=== PATIENT | female | born 1950 | race Caucasian/White ===

== ENCOUNTER 2016-07-19 22:16 | Emergency (ER) | payer MEDICARE, BC ==
[~2016-07-19] VITALS: Ht 167.6 cm; Wt 45.0 kg
[~2016-07-19 22:16] MED LIST: ECOT81TA2 PO; HYDRO25 PO; OXYB5TAB PO; [UNRECOGNIZED DRUG - CODE] SC
[2016-07-19 22:31] VITALS: BP 116/67; PULSE 86; RESP 16; TEMP 97.7; O2SAT 98
[2016-07-19] MEDS ORDERED: ASPI81TA81 (22:37)
[2016-07-19] MEDS ORDERED: SODIUM CHLOR 0.9% 1000 ML INJ 1,000 ML IV ONE (22:40)
[2016-07-19] MEDS ORDERED: [UNRECOGNIZED DRUG - CODE] SQ (22:42)
[2016-07-19 22:43] VITALS: RESP 18; O2SAT 98
[2016-07-19] MEDS ORDERED: SODIUM CHLORIDE 0.9% FLUSH 10 ML FLUSH IVF PRN (22:45)
[2016-07-19 23:01] VITALS: BP_SYST 100; BP_SYST 90; BP_SYST 97; BP_DIAS 54; BP_DIAS 62; BP_DIAS 64
--- NOTE | 2016-07-19 23:05 | PD ---
HPI Chief Complaint: Syncope/Near-Syncope Time Seen by Provider: 22:36 Travel History International Travel<30 days: No Contact w/Intl Traveler<30days: No Traveled to known affect area: No History of Present Illness HPI The patient is a 65-year-old female who presents emergency department via EMS after syncopal episode. The patient had a few glasses of white wine earlier tonight, was in the bathroom, sitting down, straining when she apparently passed out. The patient states she awakened on the ground, does not recall the events after she was straining. She does complain of mild headache and some left-sided neck pain. The patient does have a previous history of syncope after taking medications for her multiple sclerosis. The patient denies any acute focal deficits, chest pain, shortness breath, nausea, vomiting , or abdominal pain. She denies any known history of arrhythmias. The patient' s primary physician is Dr. Eng and her neurologist is Dr. Cohen. Symptoms are moderate, exacerbated after using the bathroom and straining, and there are no current alleviating factors. PFSH Past Medical History Anxiety: Yes Depression: Yes Cancer: No Cardiovascular Problems: No Diminished Hearing: No Endocrine: No Fibromyalgia: Yes Genitourinary: Yes (Frequant Urination) Immune Disorder: No Musculoskeletal: No Neurologic: Yes (MS) Psychiatric: Yes Reproductive: No Respiratory: No Migraines: Yes : 1 Para: 1 Past Surgical History Abdominal Surgery: No Cardiac Surgery: No Ear Surgery: No Endocrine Surgery: No Eye Surgery: No Genitourinary Surgery: No Gynecologic Surgery: No Oral Surgery: Yes (Implants) Thoracic Surgery: No Other Surgery: Yes Social History Alcohol Use: Yes (EVERYDAY ) Tobacco Use: No Substance Use: No Allergies-Medications (Allergen,Severity, Reaction): Coded Allergies: No Known Allergies (Unverified , 08/03/15) Reported Meds & Prescriptions Reported Meds & Active Scripts Active Reported Folic Acid 400 Mcg Tab 400 Mcg PO DAILY Divalproex DR (Divalproex Sodium) 250 Mg Tabdr 250 Mg PO BID Duloxetine DR (Duloxetine HCl) 60 Mg Capdr 60 Mg PO DAILY Amantadine (Amantadine HCl) 100 Mg Tab 100 Mg PO BID Ditropan (Oxybutynin Chloride) 5 Mg Tab 5 Mg PO Q12HR Topiramate ER (Topiramate) 25 Mg Cap 25 Mg PO BID Sulfasalazine 500 Mg Tab 500 Mg PO Q8H Pilocarpine 7.5 Mg Tab 7.5 Mg PO Q8HR Rebif Rebidose Pen Inj (Interferon Beta 1a) 22 Mcg/0.5 Ml Pen 22 Mcg SQ Q3D Aspir-81 (Aspirin) 81 Mg Tabdr Review of Systems Except as stated in HPI: all other systems reviewed are Neg General / Constitutional: No: Fever Eyes: No: Blurred Vision HENT: Positive: Headaches, Neck Pain, No: Lightheadedness Cardiovascular: Positive: Syncope, No: Chest Pain or Discomfort, Palpitations , Irregular Rhythm, Tachycardia, Diaphoresis, Dyspnea on exertion Respiratory: No: Shortness of Breath Gastrointestinal: No: Nausea, Vomiting Neurologic: Positive: Syncope, Other (possible LOC, history of MS), No: Weakness, Dizziness, Change in Mentation Physical Exam Narrative GENERAL: Awake, alert, pleasant 65-year-old female who appears her stated age is in no acute respiratory distress. SKIN: Focused skin assessment warm/dry. HEAD: Atraumatic. Normocephalic. EYES: Pupils equal and round. Pupils are 3 mm bilateral and reactive. Patient is able to see fingers at a distance of 2 feet without difficulty. EOMs are intact. ENT: No nasal bleeding or discharge. Mucous membranes pink and moist. NECK: Trachea midline. No JVD. CARDIOVASCULAR: Regular rate and rhythm. No murmur appreciated. RESPIRATORY: No accessory muscle use. Clear to auscultation. Breath sounds equal bilaterally. GASTROINTESTINAL: Abdomen soft, non-tender, nondistended. No rebound tenderness. MUSCULOSKELETAL: No obvious deformities. No clubbing. No cyanosis. No edema. NEUROLOGICAL: Awake and alert. No obvious cranial nerve deficits. Motor grossly within normal limits. Normal speech. Nonfocal. Oriented 4. Follows commands without difficulty. PSYCHIATRIC: Appropriate mood and affect; insight and judgment normal. Data Data Last Documented VS Vital Signs Date Time Temp Pulse Resp B/P Pulse Ox O2 Delivery O2 Flow Rate FiO2 07/19/16 23:01 85 100/64 87 97/62 88 90/54 07/19/16 22:43 18 98 07/19/16 22:31 97.7 Orders Electrocardiogram (07/19/16 22:40) Complete Blood Count With Diff (07/19/16 22:40) Comprehensive Metabolic Panel (07/19/16 22:40) Magnesium (Mg) (07/19/16 22:40) Ct Brain W/O Iv Contrast(Rout) (07/19/16 22:40) Ct Cerv Spine W/O Contrast (07/19/16 22:40) Ecg Monitoring (07/19/16 22:40) Iv Access Insert/Monitor (07/19/16 22:40) Oximetry (07/19/16 22:40) Sodium Chloride 0.9% Flush (Ns Flush) (07/19/16 22:45) Sodium Chlor 0.9% 1000 Ml Inj (Ns 1000 M (07/19/16 22:40) Orthostatic Vital Signs (07/19/16 22:40) Alcohol (Ethanol) (07/19/16 22:40) Tetanus/Diphtheria Tox Adult (Tetanus/Di (07/19/16 23:15) Sodium Chlor 0.9% 1000 Ml Inj (Ns 1000 M (07/20/16 00:30) Labs Laboratory Tests Test 07/19/16 22:45 White Blood Count 4.5 TH/MM3 Red Blood Count 3.56 MIL/MM3 Hemoglobin 11.0 GM/DL Hematocrit 34.4 % Mean Corpuscular Volume 96.7 FL Mean Corpuscular Hemoglobin 30.9 PG Mean Corpuscular Hemoglobin 32.0 % Concent Red Cell Distribution Width 14.3 % Platelet Count 303 TH/MM3 Mean Platelet Volume 7.8 FL Neutrophils (%) (Auto) 45.2 % Lymphocytes (%) (Auto) 41.6 % Monocytes (%) (Auto) 10.2 % Eosinophils (%) (Auto) 2.3 % Basophils (%) (Auto) 0.7 % Neutrophils # (Auto) 2.0 TH/MM3 Lymphocytes # (Auto) 1.9 TH/MM3 Monocytes # (Auto) 0.5 TH/MM3 Eosinophils # (Auto) 0.1 TH/MM3 Basophils # (Auto) 0.0 TH/MM3 CBC Comment DIFF FINAL Differential Comment Sodium Level 143 MEQ/L Potassium Level 3.8 MEQ/L Chloride Level 104 MEQ/L Carbon Dioxide Level 29.7 MEQ/L Anion Gap 9 MEQ/L Blood Urea Nitrogen 14 MG/DL Creatinine 0.77 MG/DL Estimat Glomerular Filtration 75 ML/MIN Rate Random Glucose 90 MG/DL Calcium Level 8.1 MG/DL Magnesium Level 2.1 MG/DL Total Bilirubin 0.2 MG/DL Aspartate Amino Transf 27 U/L (AST/SGOT) Alanine Aminotransferase 45 U/L (ALT/SGPT) Alkaline Phosphatase 69 U/L Total Protein 5.9 GM/DL Albumin 3.3 GM/DL Ethyl Alcohol Level 4 MG/DL [facility] Medical Decision Making Medical Screen Exam Complete: Yes Emergency Medical Condition: Yes Medical Record Reviewed: Yes Interpretation(s) EKG reveals normal sinus rhythm with a rate of 82. No ischemic changes or ectopy noted. No evidence of WPW or Brugada syndrome. Laboratory Tests Test 07/19/16 22:45 White Blood Count 4.5 TH/MM3 Red Blood Count 3.56 MIL/MM3 Hemoglobin 11.0 GM/DL Hematocrit 34.4 % Mean Corpuscular Volume 96.7 FL Mean Corpuscular Hemoglobin 30.9 PG Mean Corpuscular Hemoglobin 32.0 % Concent Red Cell Distribution Width 14.3 % Platelet Count 303 TH/MM3 Mean Platelet Volume 7.8 FL Neutrophils (%) (Auto) 45.2 % Lymphocytes (%) (Auto) 41.6 % Monocytes (%) (Auto) 10.2 % Eosinophils (%) (Auto) 2.3 % Basophils (%) (Auto) 0.7 % Neutrophils # (Auto) 2.0 TH/MM3 Lymphocytes # (Auto) 1.9 TH/MM3 Monocytes # (Auto) 0.5 TH/MM3 Eosinophils # (Auto) 0.1 TH/MM3 Basophils # (Auto) 0.0 TH/MM3 CBC Comment DIFF FINAL Differential Comment Sodium Level 143 MEQ/L Potassium Level 3.8 MEQ/L Chloride Level 104 MEQ/L Carbon Dioxide Level 29.7 MEQ/L Anion Gap 9 MEQ/L Blood Urea Nitrogen 14 MG/DL Creatinine 0.77 MG/DL Estimat Glomerular Filtration 75 ML/MIN Rate Random Glucose 90 MG/DL Calcium Level 8.1 MG/DL Magnesium Level 2.1 MG/DL Total Bilirubin 0.2 MG/DL Aspartate Amino Transf 27 U/L (AST/SGOT) Alanine Aminotransferase 45 U/L (ALT/SGPT) Alkaline Phosphatase 69 U/L Total Protein 5.9 GM/DL Albumin 3.3 GM/DL Ethyl Alcohol Level 4 MG/DL CT of the head reveals no acute intracranial findings CT of the cervical spine reveals degenerative changes. No evidence of acute bony injury the cervical spine. Differential Diagnosis Differential diagnosis includes arrhythmia, vasovagal syncope, micturition syncope, aortic stenosis, intracranial hemorrhage, cervical fracture, electrolyte abnormality. Narrative Course IV was established, labs are drawn and sent, and the patient was placed on cardiac telemetry monitoring and continuous pulse oximetry monitoring. EKG was ordered and interpreted. Orthostatic vital signs were obtained and the patient was administered IV fluids. CT of the brain and cervical spine were obtained. The patient's orthostatic vital signs are unremarkable. CT the brain is negative, CT cervical spine reveals degenerative changes, no fracture. Laboratory evaluation is unremarkable. Patient does have a history of blood pressure that is on the lower end, therefore, was administered a second liter of IV fluids. The laceration was stable, she is advised to return in one week for removal. The patient was asymptomatic and will be discharged home. Procedures Procedure Narrative LACERATION LOCATION: Occipital scalp LENGTH: 4 cm NUMBER OF STITCHES/ANTONIO: 8 REPAIR: The area of the laceration was prepped with Betadine and sterilely draped. The laceration was infiltrated with 1% lidocaine with epinephrine. The wound was copiously irrigated and explored without evidence of foreign body , tendon injury or neurovascular injury. The wound was closed using antonio. This was a single layer repair. A sterile dressing was applied. The patient was advised to keep the dressing clean and dry. Patient tolerated the procedure well. Diagnosis Primary Impression: Syncope Qualified Code: R55 - Syncope, unspecified syncope type Additional Impression: Laceration of scalp Qualified Code: S01.01XA - Laceration of scalp, initial encounter Additional Instructions: Staple removal in 7 days. Monitor for signs of infection. Return if symptoms worsen or progress. Drink plenty fluids to stay hydrated. Med/Other Pt SpecificInfo: No Change to Meds Disposition: 01 DISCHARGE HOME Condition: Stable Patrick Armstrong MD July 19, 2016 23:05
[2016-07-19 23:06] LABS: BASOPHIL % 0.7 % (0.0-2.0); EOSINOPHIL # 0.1 TH/MM3 (0-0.4); EOSINOPHIL % 2.3 % (0.0-4.0); HEMATOCRIT 34.4 % (35.0-46.0); HEMO FLAGS DIFF FINAL; LYMPH % 41.6 % (9.0-44.0); LYMPHOCYTE # 1.9 TH/MM3 (1.0-4.8); MEAN CELL VOLUME 96.7 FL (80.0-100.0); MEAN CORPUSCULAR HEMOGLOBIN 30.9 PG (27.0-34.0); MONO % 10.2 % (0.0-8.0); NEUT % 45.2 % (16.0-70.0); PLATELET COUNT 303 TH/MM3 (150-450); RED BLOOD COUNT 3.56 MIL/MM3 (4.00-5.30); RED CELL DISTRIBUTION WIDTH 14.3 % (11.6-17.2); WHITE BLOOD COUNT 4.5 TH/MM3 (4.0-11.0)
[2016-07-19] MEDS ORDERED: TETANUS/DIPHTHERIA TOXOID ADULT 0.5 ML VIAL IM ONE (23:15)
--- NOTE | 2016-07-19 23:28 | RADRPT ---
EXAM DATE/TIME: 07/19/2016 22:57 [facility] COMPARISON: No previous studies available for comparison. INDICATIONS : Trauma; fall. RADIATION DOSE: 56.35 CTDIvol (mGy) MEDICAL HISTORY : Non-responsive. SURGICAL HISTORY : Non-responsive. ENCOUNTER: Initial ACUITY: 1 day PAIN SCALE: Non-responsive LOCATION: cranial TECHNIQUE: Multiple contiguous axial images were obtained of the head. Using automated exposure control and adj ustment of the mA and/or kV according to patient size, radiation dose was kept as low as reasonably a chievable to obtain optimal diagnostic quality images. FINDINGS: The ventricles are symmetric and normal. No abnormal extra-axial fluid collections are identified. Th ere is no evidence of intracranial mass or hemorrhage. There is patchy mild diminished attenuation in periventricular and subcortical white matter, likely chronic microvascular ischemic in etiology. The re is nothing to suggest acute infarction. Extracranial structures are benign and intact. CONCLUSION: No acute intracranial findings Mario Dominguez MD on July 19, 2016 at 23:23 Board Certified Radiologist. This report was verified electronically.
[2016-07-19 23:29] LABS: ALT (GPT) 45 U/L (10-53); ANION GAP 9 MEQ/L (5-15); AST (GOT) 27 U/L (15-37); BICARBONATE 29.7 MEQ/L (21.0-32.0); BLOOD UREA NITROGEN 14 MG/DL (7-18); CHLORIDE 104 MEQ/L (98-107); GLOMERULAR FILTRATION RATE 75 ML/MIN (>89); MAGNESIUM 2.1 MG/DL (1.5-2.5); POTASSIUM 3.8 MEQ/L (3.5-5.1); SODIUM (NA) 143 MEQ/L (136-145)
[2016-07-19] MEDS ORDERED: OXYB5TAB10 PO (23:29)
[2016-07-19] MEDS ORDERED: AMAN100T PO (23:29)
[2016-07-19] MEDS ORDERED: DULO1CAP3 PO (23:29)
[2016-07-19] MEDS ORDERED: FOLI400T PO (23:29)
[2016-07-19] MEDS ORDERED: SULF500T3 PO (23:29)
[2016-07-19] MEDS ORDERED: PILO7.5T3 PO (23:29)
[2016-07-19] MEDS ORDERED: TOPI1CAP16 PO (23:29)
[2016-07-19] MEDS ORDERED: DIVA250T PO (23:29)
[2016-07-19 23:32] LABS: ALKALINE PHOSPHATASE 69 U/L (45-117); TOTAL BILIRUBIN ADULT 0.2 MG/DL (0.2-1.0)
--- NOTE | 2016-07-20 00:03 | RADRPT ---
EXAM DATE/TIME: 07/19/2016 22:58 [facility] COMPARISON: CTA CAROTID ARTERIES W 3D RECON, August 03, 2015, 21:40. INDICATIONS : Trauma, fall. RADIATION DOSE: 23.43 CTDIvol (mGy) MEDICAL HISTORY : Non-responsive. SURGICAL HISTORY : Non-responsive. ENCOUNTER: Initial ACUITY: 1 day PAIN SCALE: Non-responsive LOCATION: neck TECHNIQUE: Volumetric scanning of the cervical spine was performed. Multiplanar reconstructions in the sagittal, coronal and oblique axial planes were performed. Using automated exposure control and adjustment o f the mA and/or kV according to patient size, radiation dose was kept as low as reasonably achievable to obtain optimal diagnostic quality images. FINDINGS: Cervical spine alignment is satisfactory. There is no evidence of cervical spine fracture. No bony ca nal or foraminal stenosis is identified. There is moderate degenerative change with disc space narrow ing and endplate osteophyte formation most significantly at C5-6 with less severe changes at adjacent levels. There degenerative change or posterior facet joints at multiple levels. There is no evidence of paraspinal hematoma. CONCLUSION: Degenerative changes. No evidence of acute bony injury to cervical spine Mario Dominguez MD on July 19, 2016 at 23:59 Board Certified Radiologist. This report was verified electronically.
[2016-07-20] MEDS ORDERED: SODIUM CHLOR 0.9% 1000 ML INJ 1,000 ML IV ONE (00:30)
[2016-07-20 01:39] VITALS: BP 134/83; PULSE 70; RESP 18; O2SAT 98
--- NOTE | 2016-07-20 08:20 | EKG ---
Date Performed: 07/19/2016 Time Performed: 22:44:23 PTAGE: 65 years EKG: Sinus rhythm NORMAL ECG Compared to prior electrocardiogram,Nonspecific ST-T wave changes have improved. PREVIOUS TRACING : 08/03/2015 22.00 DOCTOR: Pal Collins Interpretating Date/Time 07/20/2016 08:19:41
== END 2016-07-20 01:41 | disposition home or self-care (01) ==
LOC: NEPC 22:16
DX: R55 Syncope and collapse (principal); S01.01XA Laceration without foreign body of scalp, initial encounter; W18.11XA Fall from or off toilet without subsequent striking against object, initial encounter; Y93.89 Activity, other specified; Y92.002 Bathroom of unspecified non-institutional (private) residence as the place of occurrence of the external cause; Z23 Encounter for immunization; Z79.899 Other long term (current) drug therapy
CPT/HCPCS: 12002; 70450; 72125; 80053; 80307; 83735; 85025; 90471; 90714; 93005; 99285; J7030

== ENCOUNTER 2016-07-26 13:19 | Emergency (ER) | payer MEDICARE, BC ==
[~2016-07-26] VITALS: Ht 172.7 cm; Wt 60.0 kg
[~2016-07-26 13:19] MED LIST changes: +AMAN100T PO; +ASPI81TA81; +DIVA250T PO; +DULO1CAP3 PO; -ECOT81TA2 PO; +FOLI400T PO; -HYDRO25 PO; -OXYB5TAB PO; +OXYB5TAB10 PO; +PILO7.5T3 PO; +SULF500T3 PO; +TOPI1CAP16 PO; -[UNRECOGNIZED DRUG - CODE] SC; +[UNRECOGNIZED DRUG - CODE] SQ
[2016-07-26 13:21] VITALS: BP 132/72; PULSE 102; RESP 20; TEMP 97.7; O2SAT 97
--- NOTE | 2016-07-26 13:47 | PD ---
HPI Chief Complaint: Wound/Suture/Staple Re-Check Time Seen by Provider: 13:30 Travel History International Travel<30 days: No Contact w/Intl Traveler<30days: No Traveled to known affect area: No History of Present Illness HPI 65-year-old female presents for staple removal. The patient was seen here on July 19 after syncopal event. She sustained an occipital scalp laceration was repaired with 8 antonio. She has some discomfort at the site of laceration, particularly when she lies down. She is otherwise without complaint. PFSH Past Medical History Anxiety: Yes Depression: Yes Cancer: No Cardiovascular Problems: No Diminished Hearing: No Endocrine: No Fibromyalgia: Yes Genitourinary: Yes (Frequant Urination) Immune Disorder: No Musculoskeletal: No Neurologic: Yes (MS) Psychiatric: Yes Reproductive: No Respiratory: No Migraines: Yes : 1 Para: 1 Past Surgical History Abdominal Surgery: No Cardiac Surgery: No Ear Surgery: No Endocrine Surgery: No Eye Surgery: No Genitourinary Surgery: No Gynecologic Surgery: No Oral Surgery: Yes (Implants) Thoracic Surgery: No Other Surgery: Yes Social History Alcohol Use: Yes (EVERYDAY ) Tobacco Use: No Substance Use: No Allergies-Medications (Allergen,Severity, Reaction): Coded Allergies: No Known Allergies (Unverified , 08/03/15) Reported Meds & Prescriptions Reported Meds & Active Scripts Active Reported Folic Acid 400 Mcg Tab 400 Mcg PO DAILY Divalproex DR (Divalproex Sodium) 250 Mg Tabdr 250 Mg PO BID Duloxetine DR (Duloxetine HCl) 60 Mg Capdr 60 Mg PO DAILY Amantadine (Amantadine HCl) 100 Mg Tab 100 Mg PO BID Ditropan (Oxybutynin Chloride) 5 Mg Tab 5 Mg PO Q12HR Topiramate ER (Topiramate) 25 Mg Cap 25 Mg PO BID Sulfasalazine 500 Mg Tab 500 Mg PO Q8H Pilocarpine 7.5 Mg Tab 7.5 Mg PO Q8HR Rebif Rebidose Pen Inj (Interferon Beta 1a) 22 Mcg/0.5 Ml Pen 22 Mcg SQ Q3D Aspir-81 (Aspirin) 81 Mg Tabdr Review of Systems Skin: Positive Other (positive for pain with antonio.) Neurologic: No: Headache Physical Exam Narrative GENERAL: Well-developed well-nourished female in no acute distress SKIN: Warm and dry. 2 cm well approximated laceration left occipital scalp, [address] No wound dehiscence or erythema or drainage. HEAD: Skin as noted above. Normocephalic. EYES: Pupils equal and round. No scleral icterus. No injection or drainage. ENT: No nasal bleeding or discharge. Mucous membranes pink and moist. NEUROLOGICAL: Awake and alert. No obvious cranial nerve deficits. Motor grossly within normal limits. Normal speech. Data Data Last Documented VS Vital Signs Date Time Temp Pulse Resp B/P Pulse Ox O2 Delivery O2 Flow Rate FiO2 07/26/16 13:21 97.7 102 20 132/72 97 Room Air MDM Medical Decision Making Medical Screen Exam Complete: Yes Emergency Medical Condition: Yes Medical Record Reviewed: Yes Differential Diagnosis Staple removal, wound dehiscence, infected wound Narrative Course The antonio were removed without incident. Diagnosis Primary Impression: Removal of staple Additional Instructions: Apply antibiotic cream daily. Return for any emergent medical conditions. Med/Other Pt SpecificInfo: No Change to Meds Disposition: 01 DISCHARGE HOME Condition: Stable Zander Caceres Jul 26, 2016 13:47
== END 2016-07-26 14:00 | disposition home or self-care (01) ==
LOC: NEPK 13:19
DX: Z48.02 Encounter for removal of sutures (principal)
CPT/HCPCS: 99281

== ENCOUNTER 2017-06-07 16:08 | Emergency (ER) | payer MEDICARE, BC ==
[~2017-06-07] VITALS: Ht 167.6 cm; Wt 47.7 kg
[~2017-06-07 16:08] MED LIST changes: -OXYB5TAB10 PO; +OXYB5TAB8 PO
[2017-06-07 16:28] VITALS: BP 141/69; PULSE 73; RESP 18; TEMP 98.1; O2SAT 99
--- NOTE | 2017-06-07 16:49 | PD ---
HPI Chief Complaint: Musculoskeletal Complaint Time Seen by Provider: 16:34 Travel History International Travel<30 days: No Contact w/Intl Traveler<30days: No Traveled to known affect area: No History of Present Illness HPI The patient was seen and examined in the presence of the nurse. Severity is moderate. Is worse with movement. No alleviating factors. She did not strike her head and has no head or neck pain. Injury at this point is limited to the left upper arm. Patient has history of MS, takes no blood thinners. Duration 1 hour. PFSH Past Medical History Anxiety: Yes Depression: Yes Cancer: No Cardiovascular Problems: No Diminished Hearing: No Endocrine: No Fibromyalgia: Yes Genitourinary: Yes (Frequant Urination) Immune Disorder: No Musculoskeletal: No Neurologic: Yes (MS) Psychiatric: Yes Reproductive: No Respiratory: No Migraines: Yes : 1 Para: 1 Past Surgical History Abdominal Surgery: No Cardiac Surgery: No Ear Surgery: No Endocrine Surgery: No Eye Surgery: No Genitourinary Surgery: No Gynecologic Surgery: No Oral Surgery: Yes (Implants) Thoracic Surgery: No Other Surgery: Yes Social History Alcohol Use: Yes (EVERYDAY ) Tobacco Use: No Substance Use: Yes (THC) Allergies-Medications (Allergen,Severity, Reaction): Coded Allergies: No Known Allergies (Unverified , 08/03/15) Reported Meds & Prescriptions Reported Meds & Active Scripts Active Percocet (Oxycodone-Acetaminophen) 5-325 mg Tab 1 Tab PO Q6H PRN Reported Folic Acid 400 Mcg Tab 400 Mcg PO DAILY Divalproex DR (Divalproex Sodium) 250 Mg Tabdr 250 Mg PO BID Duloxetine DR (Duloxetine HCl) 60 Mg Capdr 60 Mg PO DAILY Amantadine (Amantadine HCl) 100 Mg Tab 100 Mg PO BID Ditropan (Oxybutynin Chloride) 5 Mg Tab 5 Mg PO Q12HR Topiramate ER (Topiramate) 25 Mg Cap 25 Mg PO BID Sulfasalazine 500 Mg Tab 500 Mg PO Q8H Pilocarpine 7.5 Mg Tab 7.5 Mg PO Q8HR Rebif Rebidose Pen Inj (Interferon Beta 1a) 22 Mcg/0.5 Ml Pen 22 Mcg SQ Q3D Aspir-81 (Aspirin) 81 Mg Tabdr Review of Systems General / Constitutional: No: Fever Eyes: No: Visual changes HENT: No: Headaches Cardiovascular: No: Chest Pain or Discomfort Respiratory: No: Shortness of Breath Gastrointestinal: No: Abdominal Pain Genitourinary: No: Dysuria Musculoskeletal: Positive: Arthralgias, Limited ROM, Weakness, Pain Skin: No Rash Neurologic: Positive: Weakness Psychiatric: No: Depression Endocrine: No: Polydipsia Hematologic/Lymphatic: No: Easy Bruising Physical Exam Narrative GENERAL: Thin pleasant well-developed patient with left shoulder injury . SKIN: Focused skin assessment reveals no rash and nodules. Skin is Warm and dry. HEAD: Atraumatic. Normocephalic. EYES: Pupils equal and round. No scleral icterus. No injection or drainage. ENT: No nasal bleeding or discharge. Mucous membranes pink and moist. NECK: Trachea midline. No JVD. No midline tenderness CARDIOVASCULAR: Regular rate and rhythm. No murmur appreciated. RESPIRATORY: No accessory muscle use. Clear to auscultation. Breath sounds equal bilaterally. GASTROINTESTINAL: Abdomen soft, non-tender, nondistended. Hepatic and splenic margins not palpable. MUSCULOSKELETAL: No obvious deformities. No clubbing. No cyanosis. No edema. Patient has a lot of tenderness in the mid left humerus. No bruising or swelling or open wound. Neurovascularly intact extremity. NEUROLOGICAL: Awake and alert. No obvious cranial nerve deficits. Motor grossly within normal limits. Normal speech. PSYCHIATRIC: Appropriate mood and affect; insight and judgment normal. Data Data Last Documented VS Vital Signs Date Time Temp Pulse Resp B/P (MAP) Pulse Ox O2 Delivery O2 Flow Rate FiO2 06/07/17 16:28 98.1 73 18 141/69 (93) 99 Orders Orders Humerus (Min 2vws) (06/07/17 ) Shoulder, Limited(2vws) (06/07/17 ) Splint Or Brace Apply/Monitor (06/07/17 17:32) Oxycodone-Acetamin 5-325 Mg (Percocet (06/07/17 18:00) MDM Medical Decision Making Medical Screen Exam Complete: Yes Emergency Medical Condition: Yes Medical Record Reviewed: Yes Differential Diagnosis Shoulder dislocation, humerus fracture, contusion Narrative Course I have reviewed the patient's electronic medical record. Reviewed her left shoulder x-rays which show a femoral neck fracture, no dislocation Reviewed her left humerus x-rays which show a femoral neck fracture I placed her in a sling She plans to follow-up with Dr. Tripathi I wrote her prescription for 25 Percocet, she will need more than the 3 day supply given that she is to be in significant pain from an acute fracture Recommend ice and wearing the sling Diagnosis Primary Impression: Fracture, humerus, neck Qualified Codes: S42.212A - Unspecified displaced fracture of surgical neck of left humerus, initial encounter for closed fracture Additional Instructions: Follow-up with orthopedist The patient was warned about potential sedation for the medications they will receive on prescription. Wear sling Apply ice to left shoulder Med/Other Pt SpecificInfo: Prescription(s) given Scripts Oxycodone-Acetaminophen (Percocet) 5-325 mg Tab 1 TAB PO Q6H Y for PAIN, #25 TAB 0 Refills Prov: Iftikhar Bishop MD 06/07/17 Disposition: 01 DISCHARGE HOME Condition: Stable Iftikhar Bishop MD Jun 07, 2017 16:49
--- NOTE | 2017-06-07 17:24 | RADRPT ---
EXAM DATE/TIME: 06/07/2017 17:07 [facility] COMPARISON: No previous studies available for comparison. INDICATIONS : Fall. Left proximal humerus pain. MEDICAL HISTORY : Multiple sclerosis. SURGICAL HISTORY : Cosmetic. ENCOUNTER: Initial ACUITY: 1 day PAIN SCORE: 9/10 LOCATION: Left shoulder FINDINGS: Fracture anatomic neck of the humerus extending across greater tuberosity. Abnormal alignment about the shoulder. Lung apex is clear. Scapula and glenoid intact. CONCLUSION: Fracture humeral head as above Christiano Hi MD FACR on June 07, 2017 at 17:21 Board Certified Radiologist. This report was verified electronically.
--- NOTE | 2017-06-07 17:27 | RADRPT ---
EXAM DATE/TIME: 06/07/2017 17:06 [facility] COMPARISON: No previous studies available for comparison. INDICATIONS : Fall. Left proximal humerus pain. MEDICAL HISTORY : Multiple sclerosis. SURGICAL HISTORY : Cosmetic. ENCOUNTER: Initial ACUITY: 1 day PAIN SCORE: 9/10 LOCATION: Left proximal humerus FINDINGS: Again seen is the fracture of the humeral head. The distal humerus is intact. CONCLUSION: Humeral head fracture. Christiano Hi MD FACR on June 07, 2017 at 17:25 Board Certified Radiologist. This report was verified electronically.
[2017-06-07] MEDS ORDERED: oxyCODONE/ACETAMINOPHEN 5 MG/325 MG TAB PO ONE (18:00)
[2017-06-07] MEDS ORDERED: PERC5TAB12 PO (18:45)
== END 2017-06-07 19:05 | disposition home or self-care (01) ==
LOC: NEPC 16:08
DX: S42.292A Other displaced fracture of upper end of left humerus, initial encounter for closed fracture (principal); X58.XXXA Exposure to other specified factors, initial encounter; G35 Multiple sclerosis; M79.7 Fibromyalgia; F32.9 Major depressive disorder, single episode, unspecified; Z79.899 Other long term (current) drug therapy
CPT/HCPCS: 73030; 73060; 99283